=== PATIENT | male | born 1980 | race Caucasian/White ===

== ENCOUNTER 2019-06-09 16:20 | Emergency (ER) | payer MEDICAID ==
[~2019-06-09] VITALS: Wt 74.0 kg
[~2019-06-09 16:20] MED LIST: IBUP-1542 PO; IBUP800T48 PO
[2019-06-09 17:06] VITALS: BP 124/78; PULSE 84; RESP 19
== END 2019-06-09 18:57 | disposition home or self-care (01) ==
LOC: E/R 16:20
DX: S89.91XA Unspecified injury of right lower leg, initial encounter (principal); W11.XXXA Fall on and from ladder, initial encounter; Y92.9 Unspecified place or not applicable
CPT/HCPCS: 73590